=== PATIENT | male | born 1950 | race Caucasian/White ===

== ENCOUNTER → 2016-08-01 | Outpatient (CLI) | payer OTHER ==
[~2016-08-01] MED LIST: ATOR-24 PO; LISI20TA3 PO; MULT-506 PO
[2016-08-01 13:47] LABS: CREATININE 0.92 mg/dl (0.60-1.40)
== END | disposition home or self-care (01) ==
LOC: C.LABMFLN 11:22
PROVIDERS: ATTEND Physician Assistant
DX: Z01.812 Encounter for preprocedural laboratory examination (principal)

== ENCOUNTER → 2016-09-04 | Outpatient (CLI) | payer OTHER ==
[2016-09-04 14:11] LABS: ALT/SGPT 23 U/L (12-78); AST/SGOT 13 U/L (15-37); BLOOD UREA NITROGEN 19 mg/dl (7-18); BUN/CREATININE RATIO 17.5 (10-20); CARBON DIOXIDE 26 mmol/L (21-32); CHLORIDE 108 mmol/L (98-107); CHOLESTEROL 165 mg/dl (0-200); GLUCOSE 96 mg/dl (70-99); POTASSIUM 4.4 mmol/L (3.5-5.1); SODIUM 142 mmol/L (136-145); TRIGLYCERIDES 96 mg/dl (0-150); VERY LOW DENSITY LIPOPROT CALC 19 mg/dl
[2016-09-04 14:14] LABS: CHOLESTEROL/HDL RATIO 3.7; HDL CHOLESTEROL 45 mg/dl; LDL CHOLESTEROL CALCULATED 101 mg/dl
[2016-09-04 14:31] LABS: CALCIUM 8.5 mg/dl (8.5-10.1)
== END | disposition home or self-care (01) ==
LOC: C.LABMFLN 09:32
PROVIDERS: ATTEND Family Medicine
DX: E78.00 Pure hypercholesterolemia, unspecified (principal); I10 Essential (primary) hypertension

== ENCOUNTER → 2017-02-24 | Outpatient (CLI) | payer OTHER ==
[2017-02-24 13:33] LABS: ALT/SGPT 22 U/L (12-78); AST/SGOT 14 U/L (15-37); BLOOD UREA NITROGEN 16 mg/dl (7-18); BUN/CREATININE RATIO 17.1 (10-20); CALCIUM 8.6 mg/dl (8.5-10.1); CARBON DIOXIDE 27 mmol/L (21-32); CHLORIDE 108 mmol/L (98-107); CHOLESTEROL 160 mg/dl (0-200); CREATININE 0.92 mg/dl (0.60-1.40); GLUCOSE 94 mg/dl (70-99); POTASSIUM 4.3 mmol/L (3.5-5.1); SODIUM 142 mmol/L (136-145)
[2017-02-24 13:36] LABS: CHOLESTEROL/HDL RATIO 3.9; HDL CHOLESTEROL 41 mg/dl; LDL CHOLESTEROL CALCULATED 94 mg/dl; TRIGLYCERIDES 126 mg/dl (0-150); VERY LOW DENSITY LIPOPROT CALC 25 mg/dl
== END | disposition home or self-care (01) ==
LOC: C.LABMFLN 08:17
PROVIDERS: ATTEND Family Medicine
DX: E78.00 Pure hypercholesterolemia, unspecified (principal); I10 Essential (primary) hypertension

== ENCOUNTER → 2017-07-21 | Outpatient (CLI) | payer OTHER ==
[2017-07-21 13:54] LABS: BLOOD UREA NITROGEN 23 mg/dl (7-18); CREATININE 0.95 mg/dl (0.60-1.40)
== END | disposition home or self-care (01) ==
LOC: C.LABMFLN 08:25
PROVIDERS: ATTEND Orthopaedic Surgery Orthopaedic Surgery of the Spine
DX: Z01.812 Encounter for preprocedural laboratory examination (principal)

== ENCOUNTER 2019-04-20 12:19 | Inpatient (IN) ==
[2019-04-20] MEDS ORDERED: dilTIAZem HCl 5 MG/ML 5 ML VIAL IV STA (12:51)
[2019-04-20 13:11] LABS: Basophils # (auto) 0.02 K/uL (0-0.2); Basophils % (auto) 0.3 %; Eosinophils # (auto) 0.06 K/uL (0-0.5); Hematocrit (blood only) 38.2 % (42-52); Hemoglobin 12.4 g/dL (14.0-18.0); Immature Granulocytes # (auto) 0.01 K/uL (0.00-0.02); Immature Granulocytes % (auto) 0.2 %; Lymphocytes # (auto) 1.63 K/uL (1.2-3.4); Lymphocytes % (auto) 27.1 %; Mean Corpuscular Hemoglobin 32.4 pg (25-34); Mean Corpuscular Hgb Conc 32.5 g/dL (32-36); Mean Corpuscular Volume 99.7 fL (80-100); Mean Platelet Volume 9.3 fL (7.4-10.4); Monocytes # (auto) 0.56 K/uL (0.11-0.59); Monocytes % (auto) 9.3 %; Neutrophils # (auto) 3.74 K/uL (1.4-6.5); Neutrophils % (auto) 62.1 %; Platelet Count 268 K/uL (130-400); RDW Coefficient of Variation 14.2 % (11.5-14.5); RDW Standard Deviation 51.3 fL (36.4-46.3); Red Blood Count 3.83 M/uL (4.7-6.1); White Blood Count 6.02 K/uL (4.8-10.8)
--- NOTE | 2019-04-20 13:15 | XRay Report ---
XR chest 1V portable CLINICAL HISTORY: 68 years-old Male presenting with Chest Pain. TECHNIQUE: Portable upright AP view of the chest was obtained. COMPARISON: 01/17/2011. FINDINGS: Median sternotomy wires now in place. Prosthetic aortic valve may be present. Atherosclerosis of the aortic arch. Cardiac silhouette mildly enlarged. Minimal pulmonary vascular prominence. No focal opac ity. No large effusion or pneumothorax. Degenerative changes of the thoracic spine. Anterior cervical fusion hardware. Upper abdomen normal. IMPRESSION: 1. Mild cardiomegaly and mild if any volume overload. ACT 112: Negative or not required by law. Electronically signed by: Skyler Leigh M.D. 04/20/2019 1:14 PM
[2019-04-20 13:26] LABS: Alanine Aminotransferase 23 U/L (12-78); Albumin Level 3.5 gm/dl (3.4-5.0); Aspartate Aminotransferase 15 U/L (15-37); BUN Creatinine Ratio 15.8 (10-20); Blood Urea Nitrogen 15 mg/dl (7-18); Calcium 9.1 mg/dl (8.5-10.1); Carbon Dioxide 26 mmol/L (21-32); Chloride 109 mmol/L (98-107); Creatinine Clr Calc Pharmacy 95.1 ml/min; Est GFR (African American) 93.6; Est GFR (Non-African American) 80.8; Glucose 91 mg/dl (70-99); Lipase 144 U/L (73-393); Potassium 4.4 mmol/L (3.5-5.1); Sodium 140 mmol/L (136-145)
[2019-04-20 13:30] LABS: Albumin Globulin Ratio 0.8 (0.9-2); Alkaline Phosphatase 111 U/L (45-117); Bilirubin,Total 0.7 mg/dl (0.2-1); Globulin 4.4 gm/dl (2.5-4.0); Total Protein 7.9 gm/dl (6.4-8.2); Troponin I < 0.015 ng/ml (0-0.045)
[2019-04-20 13:34] LABS: INR 1.1 (0.9-1.1); Prothrombin Time 10.9 Seconds (9.0-12.0)
[2019-04-20] MEDS: dilTIAZem HCL 125 MG in DEXTROSE 5% 100 ML IV SCH ×2 (13:38→21:23)
--- NOTE | 2019-04-20 14:00 | Electrocardiogram Report ---
Test Reason : Blood Pressure : / mmHG Vent. Rate : 134 BPM Atrial Rate : 268 BPM P-R Int : 000 ms QRS Dur : 078 ms QT Int : 206 ms P-R-T Axes : 059 018 070 degrees QTc Int : 307 ms Atrial flutter with variable A-V block Nonspecific T wave abnormality Abnormal ECG When compared with ECG of 16-JAN-2011 22:33, Atrial flutter has replaced Sinus rhythm Nonspecific T wave abnormality now evident in Anterolateral leads Confirmed by Krish Raymundo ([id number]) on 04/20/2019 2:00:12 PM Referred By: Confirmed By:Krish Raymundo
--- NOTE | 2019-04-20 15:18 | Anesthesiology Consultation ---
Date of Service April 20, 2019 Assessment & Plan (1) Encounter for pre-operative examination: Chart Review Chart Review: Acceptable Risk for Surgery History Height/Weight Height: 5 ft 10 in Weight: 122.9 kg Allergies Allergy/AdvReac Type Severity Reaction Status Date / Time No Known Allergies Allergy Verified 04/20/19 13:49 Medications Home Medications Medication Instructions Recorded Confirmed Last Taken apixaban [Eliquis] 5 mg PO BID 04/20/19 04/20/19 04/20/19 diltiazem HCl 120 mg PO DAILY 04/20/19 04/20/19 04/20/19 Active Medications Generic Name Dose Route Start Last Admin Trade Name Freq PRN Reason Stop Dose Admin Diltiazem HCl 125 mg/ Dextrose 125 mls @ 0 mls/hr 04/20/19 13:00 04/20/19 13:38 IV 05/20/19 12:59 5 mg/hr .Q0M MEDARDO 5 mls/hr Administration Protocol Per Protocol Past Medical History Medical History Abdominal bloating (Acute) Aortic stenosis Atrial flutter Benign essential hypertension (Acute) CAD (coronary artery disease) Cervical radiculopathy (Acute) Cervicalgia (Acute) Erectile dysfunction (Acute) Hypercholesterolemia (Acute) Medicare annual wellness visit, initial (Acute) Multiple lung nodules on CT (Acute) Need for pneumococcal vaccination (Acute) Prostate cancer screening (Acute) Screen for colon cancer (Acute) Trigger finger, acquired (Acute) Tubular adenoma of colon (Acute) Ureteral calculus, left (Acute) Past Family History Family History Brother Coronary heart disease Colon cancer Past Surgical History Surgical History History of arthroscopy of shoulder History of spinal surgery Hx of carpal tunnel repair S/P aortic valve replacement with bioprosthetic valve Social History Smoking Status: Never smoker Hx Alcohol Use: No Hx Substance Use: No substance use type: does not use Physical Exam Vital Signs Last Vital Signs Temp 36.7 C 04/20/19 12:29 Pulse 94 H 04/20/19 15:04 Resp 18 04/20/19 15:04 BP 126/98 04/20/19 15:04 Pulse Ox 96 04/20/19 15:04 Testing Laboratory Results 04/20/19 13:01 04/20/19 13:01 PT 10.9 Seconds (9.0-12.0) 04/20/19 13:01 INR 1.1 (0.9-1.1) 04/20/19 13:01 Electrocardiogram Date: 04/20/19 Findings: + AFIB @ (A flutter 134)
--- NOTE | 2019-04-20 15:30 | History & Physical Report ---
Date of Service April 20, 2019 Assessment & Plan (1) Atrial flutter: Admit to PCU on telemetry Vital signs every 4 hours N.p.o. after midnight for the LIANG guided cardioversion TTE pending Cardiology consult placed Dr. Kong Continue diltiazem drip DVT prophylaxis with Eliquis Continue Eliquis Full code Present on Admission?: Yes (2) SOB (shortness of breath): Likely related to palpitations and fast heart rate. Improving with decreasing heart rate and diltiazem drip. Present on Admission?: Yes (3) CAD (coronary artery disease): Patient had lipid panel checked on October 2018 which was grossly normal. He is not on lipid lowering agents. Present on Admission?: Yes (4) S/P aortic valve replacement with bioprosthetic valve: TTE pending. No clinical symptoms of bioprosthetic valve issue. Continue Eliquis anticoagulation Present on Admission?: Yes (5) Hypercholesterolemia: Lipid panel was checked in October 2018. It was grossly normal. Repeat lipid panel in a.m. 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 fib's a flutter. He is patient of Dr. Kong. Patient was sitting comfortably in the bed. He says that he feels okay. He had some palpitations earlier today which are now resolving. He was started on diltiazem drip and his heart rate is slowing down from [address] Kong recommended to have TTE done before LIANG guided cardioversion which is planned for tomorrow. Patient denies fever, chills, chest pain, shortness of breath, abdominal pain, frequency, urgency. EKG shows atrial flutter with variable AV block. And nonspecific T wave abnormality with QT interval of 206 and ventricular rate of 130. Labs are reviewed: WBCs 6.02, hemoglobin 12.4, hematocrit 38.2, platelets 268, PT 10.9, INR 1.1, sodium 140, potassium 4.4, chloride 109, BUN 15, creatinine 0.95, GFR 80.8, troponin 0.015, Albumin 3.5, TSH pending, BNP pending. Decision was made to admit patient to PCU on telemetry for planned LIANG guided cardioversion tomorrow. Allergies Allergy/AdvReac Type Severity Reaction Status Date / Time No Known Allergies Allergy Verified 04/20/19 13:49 Home Medications Home Medications Medication Instructions Recorded Confirmed Type apixaban [Eliquis] 5 mg PO BID 04/20/19 04/20/19 History diltiazem HCl 120 mg PO DAILY 04/20/19 04/20/19 History Past Med/Surg History Medical History Abdominal bloating (Acute) Aortic stenosis Atrial flutter Benign essential hypertension (Acute) CAD (coronary artery disease) Cervical radiculopathy (Acute) Cervicalgia (Acute) Erectile dysfunction (Acute) Hypercholesterolemia (Acute) Medicare annual wellness visit, initial (Acute) Multiple lung nodules on CT (Acute) Need for pneumococcal vaccination (Acute) Prostate cancer screening (Acute) Screen for colon cancer (Acute) Trigger finger, acquired (Acute) Tubular adenoma of colon (Acute) Ureteral calculus, left (Acute) Surgical History History of arthroscopy of shoulder History of spinal surgery Hx of carpal tunnel repair S/P aortic valve replacement with bioprosthetic valve Family History Brother Coronary heart disease Colon cancer Social History Preferred Language: Telugu Communication Ability: Effective Beliefs That Will Affect Care: None marital status: Current Living Situation: Spouse Feels Safe at Home: Yes Smoking Status: Never smoker Hx Alcohol Use: No Hx Substance Use: No Review of Systems Review of Systems: All systems reviewed & are unremarkable except as noted in HPI & below Physical Exam Constitutional: WD/WN, vitals as above well developed and + morbidly obese Eyes: PERRL, conjunctivae normal, anicteric sclerae ENMT: external ear and nose normal, oropharynx normal Neck: trachea midline, no thyromegaly Respiratory: normal respiratory effort, lungs clear to auscultation Cardiovascular: Rate/Rhythm: + irregularly irregular Vessels: dorsalis pedis pulses present Gastrointestinal (Abdomen): normal bowel sounds, soft, nontender, no hepatosplenomegaly Musculoskeletal: no cyanosis or clubbing, extremities motor strength 5/5 Skin: no rashes, warm and dry Neurologic: patellar DTR's 2+ bilat, sensation intact Psychiatric: A+Ox3, euthymic affect Lymphatic: no cervical or axillary lymphadenopathy Results & Data Vital Signs (Past 12 Hours) Vital Signs Temp Pulse Pulse Resp BP BP Pulse Ox 04/20/19 15:04 94 H 18 126/98 96 04/20/19 14:10 96 H 20 126/98 94 04/20/19 13:30 91 H 18 160/70 H 96 04/20/19 12:47 136 H 93 04/20/19 12:45 137 H 22 134/102 H 93 04/20/19 12:29 36.7 C 140 H 20 139/93 97 Code Status & VTE Plan Code Status Full code VTE Prophylaxis Plan VTE Prophylaxis will be ordered: Yes PG Care Time/CCT Total # of Minutes Spent Total Time Spent with Patient: Total time spent is greater than 50% in coor dination of care (as documented) at patient's floor/unit and/or counseling patient: (1) Atrial flutter Atrial flutter type: unspecified Qualified Code(s): I48.92 - Unspecified atrial flutter
--- NOTE | 2019-04-20 19:17 | Emergency Department Note ---
Entered by Roxanne Vang acting as a scribe for History of Present Illness General Chief complaint: Referred by Doctor Stated complaint: HIGH BP DR REF Source: patient History of Present Illness Provider complaint: referred by doctor Onset (ago): minute(s) (prior to arrival ) Location: chest Maximum Pain Intensity: 0 Quality: + other (referred by doctor) Associated symptoms: + shortness of breath and + other (Positive fatigue;); no chest pain Treatments prior to arrival: none The patient, who is a 68 year old male with a medical history of CAD, aortic stenosis, and hypercholesterolemia, presents to the Emergency Room with a reference from his manager club for evaluation. The patient explains that he had open heart surgery for an aortic valve replacement on March 31. The patient states that today during cardiac rehab they observed that his heart rate was over 140. The patient explains that he had an appointment with his manager club earlier today and informs that he was sent here to have his heart slowed down. The patient denies chest pain or any chest symptoms. The patient expresses that he has had worsening shortness of breath and fatigue after completing his medication on April 02. The patient informs that he was taking potassium pills, vitamins, Aspirin and a heart medications that he does not recall. The patient confirms that he is on Eliquis. The patient denies a history of atrial fibrillation and atrial flutter. Home Medications Home Medications Medication Instructions Recorded Confirmed Type apixaban [Eliquis] 5 mg PO BID 04/20/19 04/20/19 History diltiazem HCl 120 mg PO DAILY 04/20/19 04/20/19 History Allergies Allergy/AdvReac Type Severity Reaction Status Date / Time No Known Allergies Allergy Verified 04/20/19 13:49 Past Med/Surg History Medical History Abdominal bloating (Acute) Aortic stenosis Atrial flutter Benign essential hypertension (Acute) CAD (coronary artery disease) Cervical radiculopathy (Acute) Cervicalgia (Acute) Erectile dysfunction (Acute) Hypercholesterolemia (Acute) Medicare annual wellness visit, initial (Acute) Multiple lung nodules on CT (Acute) Need for pneumococcal vaccination (Acute) Prostate cancer screening (Acute) Screen for colon cancer (Acute) Trigger finger, acquired (Acute) Tubular adenoma of colon (Acute) Ureteral calculus, left (Acute) Surgical History History of arthroscopy of shoulder History of spinal surgery Hx of carpal tunnel repair S/P aortic valve replacement with bioprosthetic valve Family History Brother Coronary heart disease Colon cancer Social History Preferred Language: Montenegrin Communication Ability: Effective Beliefs That Will Affect Care: None marital status: Current Living Situation: Spouse Feels Safe at Home: Yes Smoking Status: Never smoker Hx Alcohol Use: No Hx Substance Use: No Review of Systems See HPI for pertinent positives & negatives. and A total of 10 systems reviewed and were otherwise negative Physical Exam Vital Signs Vital Signs - 24 hr 04/20/19 12:29 04/20/19 12:41 04/20/19 12:42 Temperature 36.7 C Temperature Source Oral Pulse Rate 140 H 139 H Pulse Rate [Finger] Pulse Rate from SpO2 Sensor Pulse Rhythm [Finger] Pulse Strength [Finger] Respiratory Rate 20 19 Respiratory Effort / Characteristics Non-Labored Respiratory Depth Normal Blood Pressure 139/93 134/102 H Blood Pressure [Right Arm] Blood Pressure Mean 108 107 Blood Pressure Mean [Right Arm] Pulse Oximetry 97 Oxygen Delivery Method Room Air Room Air Sepsis Recent Fever Within 48 Hours No Sepsis Action Taken by Nursing No Action Required 04/20/19 12:45 04/20/19 12:47 04/20/19 13:00 Temperature Temperature Source Pulse Rate 136 H 137 H Pulse Rate [Finger] 137 H Pulse Rate from SpO2 Sensor 136 H Pulse Rhythm [Finger] Pulse Strength [Finger] Respiratory Rate 22 34 H Respiratory Effort / Characteristics Respiratory Depth Blood Pressure Blood Pressure [Right Arm] 134/102 H Blood Pressure Mean Blood Pressure Mean [Right Arm] 112 Pulse Oximetry 93 93 96 Oxygen Delivery Method Room Air Sepsis Recent Fever Within 48 Hours Sepsis Action Taken by Nursing 04/20/19 13:10 04/20/19 13:20 04/20/19 13:30 Temperature Temperature Source Pulse Rate 132 H 136 H 117 H Pulse Rate [Finger] 91 H Pulse Rate from SpO2 Sensor 131 H 137 H 197 H Pulse Rhythm [Finger] Irregular Pulse Strength [Finger] Normal Respiratory Rate 18 26 H 19 Respiratory Effort / Characteristics Non-Labored Respiratory Depth Normal Blood Pressure Blood Pressure [Right Arm] 160/70 H Blood Pressure Mean Blood Pressure Mean [Right Arm] 100 Pulse Oximetry 96 96 87 L Oxygen Delivery Method Room Air Sepsis Recent Fever Within 48 Hours Sepsis Action Taken by Nursing 04/20/19 13:40 04/20/19 13:41 04/20/19 13:45 Temperature Temperature Source Pulse Rate 112 H 113 H 102 H Pulse Rate [Finger] Pulse Rate from SpO2 Sensor 114 H 103 H 90 Pulse Rhythm [Finger] Pulse Strength [Finger] Respiratory Rate 24 22 22 Respiratory Effort / Characteristics Respiratory Depth Blood Pressure 115/81 127/99 Blood Pressure [Right Arm] Blood Pressure Mean 92 108 Blood Pressure Mean [Right Arm] Pulse Oximetry 96 95 95 Oxygen Delivery Method Sepsis Recent Fever Within 48 Hours Sepsis Action Taken by Nursing 04/20/19 13:50 04/20/19 13:51 04/20/19 13:55 Temperature Temperature Source Pulse Rate 102 H 102 H 102 H Pulse Rate [Finger] Pulse Rate from SpO2 Sensor 104 H 102 H 91 H Pulse Rhythm [Finger] Pulse Strength [Finger] Respiratory Rate 18 18 17 Respiratory Effort / Characteristics Respiratory Depth Blood Pressure 118/96 115/92 Blood Pressure [Right Arm] Blood Pressure Mean 109 96 Blood Pressure Mean [Right Arm] Pulse Oximetry 94 95 95 Oxygen Delivery Method Sepsis Recent Fever Within 48 Hours Sepsis Action Taken by Nursing 04/20/19 14:00 04/20/19 14:01 04/20/19 14:05 Temperature Temperature Source Pulse Rate 96 H 102 H 102 H Pulse Rate [Finger] Pulse Rate from SpO2 Sensor 99 H 103 H 102 H Pulse Rhythm [Finger] Pulse Strength [Finger] Respiratory Rate 18 17 17 Respiratory Effort / Characteristics Respiratory Depth Blood Pressure 130/87 126/98 Blood Pressure [Right Arm] Blood Pressure Mean 105 115 Blood Pressure Mean [Right Arm] Pulse Oximetry 95 95 95 Oxygen Delivery Method Sepsis Recent Fever Within 48 Hours Sepsis Action Taken by Nursing 04/20/19 14:10 04/20/19 14:11 04/20/19 14:15 Temperature Temperature Source Pulse Rate 102 H 86 102 H Pulse Rate [Finger] 96 H Pulse Rate from SpO2 Sensor 101 H 95 H 103 H Pulse Rhythm [Finger] Regular Pulse Strength [Finger] Respiratory Rate 27 H 18 20 Respiratory Effort / Characteristics Non-Labored Respiratory Depth Normal Blood Pressure 124/82 128/96 Blood Pressure [Right Arm] 126/98 Blood Pressure Mean 102 101 Blood Pressure Mean [Right Arm] 107 Pulse Oximetry 96 95 95 Oxygen Delivery Method Room Air Sepsis Recent Fever Within 48 Hours Sepsis Action Taken by Nursing 04/20/19 14:20 04/20/19 14:21 04/20/19 14:25 Temperature Temperature Source Pulse Rate 120 H 102 H 109 H Pulse Rate [Finger] Pulse Rate from SpO2 Sensor 96 H 105 H Pulse Rhythm [Finger] Pulse Strength [Finger] Respiratory Rate 20 28 H 30 H Respiratory Effort / Characteristics Respiratory Depth Blood Pressure 153/96 H 121/86 Blood Pressure [Right Arm] Blood Pressure Mean 107 100 Blood Pressure Mean [Right Arm] Pulse Oximetry 91 94 Oxygen Delivery Method Sepsis Recent Fever Within 48 Hours Sepsis Action Taken by Nursing 04/20/19 14:30 04/20/19 14:31 04/20/19 14:35 Temperature Temperature Source Pulse Rate 102 H 102 H 91 H Pulse Rate [Finger] Pulse Rate from SpO2 Sensor 101 H 103 H 96 H Pulse Rhythm [Finger] Pulse Strength [Finger] Respiratory Rate 23 19 17 Respiratory Effort / Characteristics Respiratory Depth Blood Pressure 124/94 132/98 Blood Pressure [Right Arm] Blood Pressure Mean 109 103 Blood Pressure Mean [Right Arm] Pulse Oximetry 95 96 96 Oxygen Delivery Method Sepsis Recent Fever Within 48 Hours Sepsis Action Taken by Nursing 04/20/19 14:40 04/20/19 14:41 04/20/19 14:45 Temperature Temperature Source Pulse Rate 90 99 H 100 H Pulse Rate [Finger] Pulse Rate from SpO2 Sensor 90 101 H 99 H Pulse Rhythm [Finger] Pulse Strength [Finger] Respiratory Rate 19 18 19 Respiratory Effort / Characteristics Respiratory Depth Blood Pressure 137/87 141/87 H Blood Pressure [Right Arm] Blood Pressure Mean 107 95 Blood Pressure Mean [Right Arm] Pulse Oximetry 94 96 96 Oxygen Delivery Method Sepsis Recent Fever Within 48 Hours Sepsis Action Taken by Nursing 04/20/19 14:50 04/20/19 14:51 04/20/19 14:55 Temperature Temperature Source Pulse Rate 101 H 102 H 102 H Pulse Rate [Finger] Pulse Rate from SpO2 Sensor 102 H 101 H 102 H Pulse Rhythm [Finger] Pulse Strength [Finger] Respiratory Rate 17 17 17 Respiratory Effort / Characteristics Respiratory Depth Blood Pressure 134/96 137/88 Blood Pressure [Right Arm] Blood Pressure Mean 103 104 Blood Pressure Mean [Right Arm] Pulse Oximetry 95 96 96 Oxygen Delivery Method Sepsis Recent Fever Within 48 Hours Sepsis Action Taken by Nursing 04/20/19 15:00 04/20/19 15:01 04/20/19 15:04 Temperature Temperature Source Pulse Rate 92 H 102 H Pulse Rate [Finger] 94 H Pulse Rate from SpO2 Sensor 98 H 102 H Pulse Rhythm [Finger] Irregular Pulse Strength [Finger] Respiratory Rate 17 18 18 Respiratory Effort / Characteristics Non-Labored Respiratory Depth Normal Blood Pressure 126/98 Blood Pressure [Right Arm] 126/98 Blood Pressure Mean 109 Blood Pressure Mean [Right Arm] 107 Pulse Oximetry 96 96 96 Oxygen Delivery Method Room Air Sepsis Recent Fever Within 48 Hours Sepsis Action Taken by Nursing 04/20/19 15:10 04/20/19 15:15 04/20/19 15:20 Temperature Temperature Source Pulse Rate 96 H 97 H 102 H Pulse Rate [Finger] Pulse Rate from SpO2 Sensor 96 H 92 H 100 H Pulse Rhythm [Finger] Pulse Strength [Finger] Respiratory Rate 19 20 19 Respiratory Effort / Characteristics Respiratory Depth Blood Pressure 138/116 H 157/122 H 159/108 H Blood Pressure [Right Arm] Blood Pressure Mean 128 134 121 Blood Pressure Mean [Right Arm] Pulse Oximetry 96 96 96 Oxygen Delivery Method Sepsis Recent Fever Within 48 Hours Sepsis Action Taken by Nursing 04/20/19 15:26 04/20/19 15:30 04/20/19 15:31 Temperature Temperature Source Pulse Rate 101 H 102 H 91 H Pulse Rate [Finger] Pulse Rate from SpO2 Sensor 81 54 L 96 H Pulse Rhythm [Finger] Pulse Strength [Finger] Respiratory Rate 19 19 23 Respiratory Effort / Characteristics Respiratory Depth Blood Pressure 156/119 H 158/103 H Blood Pressure [Right Arm] Blood Pressure Mean 131 131 Blood Pressure Mean [Right Arm] Pulse Oximetry 96 96 96 Oxygen Delivery Method Sepsis Recent Fever Within 48 Hours Sepsis Action Taken by Nursing 04/20/19 15:35 04/20/19 15:40 04/20/19 15:45 Temperature Temperature Source Pulse Rate 102 H 96 H 101 H Pulse Rate [Finger] Pulse Rate from SpO2 Sensor 89 102 H 101 H Pulse Rhythm [Finger] Pulse Strength [Finger] Respiratory Rate 21 18 21 Respiratory Effort / Characteristics Respiratory Depth Blood Pressure 130/94 141/92 H Blood Pressure [Right Arm] Blood Pressure Mean 106 105 Blood Pressure Mean [Right Arm] Pulse Oximetry 96 96 96 Oxygen Delivery Method Sepsis Recent Fever Within 48 Hours Sepsis Action Taken by Nursing 04/20/19 15:50 04/20/19 16:00 04/20/19 16:01 Temperature Temperature Source Pulse Rate 102 H 91 H 96 H Pulse Rate [Finger] Pulse Rate from SpO2 Sensor 103 H 88 90 Pulse Rhythm [Finger] Pulse Strength [Finger] Respiratory Rate 22 19 20 Respiratory Effort / Characteristics Respiratory Depth Blood Pressure 137/82 Blood Pressure [Right Arm] Blood Pressure Mean 94 Blood Pressure Mean [Right Arm] Pulse Oximetry 97 96 96 Oxygen Delivery Method Sepsis Recent Fever Within 48 Hours Sepsis Action Taken by Nursing 04/20/19 16:10 04/20/19 16:15 04/20/19 16:20 Temperature Temperature Source Pulse Rate 99 H 103 H 103 H Pulse Rate [Finger] Pulse Rate from SpO2 Sensor 86 99 H 103 H Pulse Rhythm [Finger] Pulse Strength [Finger] Respiratory Rate 19 21 18 Respiratory Effort / Characteristics Respiratory Depth Blood Pressure 129/95 Blood Pressure [Right Arm] Blood Pressure Mean 103 Blood Pressure Mean [Right Arm] Pulse Oximetry 96 96 96 Oxygen Delivery Method Sepsis Recent Fever Within 48 Hours Sepsis Action Taken by Nursing 04/20/19 16:30 04/20/19 16:31 04/20/19 16:40 Temperature Temperature Source Pulse Rate 103 H 96 H 84 Pulse Rate [Finger] Pulse Rate from SpO2 Sensor 101 H 98 H 84 Pulse Rhythm [Finger] Pulse Strength [Finger] Respiratory Rate 19 17 16 Respiratory Effort / Characteristics Respiratory Depth Blood Pressure 140/112 H Blood Pressure [Right Arm] Blood Pressure Mean 128 Blood Pressure Mean [Right Arm] Pulse Oximetry 94 96 94 Oxygen Delivery Method Sepsis Recent Fever Within 48 Hours Sepsis Action Taken by Nursing 04/20/19 16:45 04/20/19 16:50 04/20/19 17:00 Temperature Temperature Source Pulse Rate 86 109 H 90 Pulse Rate [Finger] Pulse Rate from SpO2 Sensor 92 H 101 H 89 Pulse Rhythm [Finger] Pulse Strength [Finger] Respiratory Rate 18 17 18 Respiratory Effort / Characteristics Respiratory Depth Blood Pressure 155/108 H 133/97 Blood Pressure [Right Arm] Blood Pressure Mean 120 112 Blood Pressure Mean [Right Arm] Pulse Oximetry 96 95 95 Oxygen Delivery Method Sepsis Recent Fever Within 48 Hours Sepsis Action Taken by Nursing 04/20/19 17:01 04/20/19 17:10 04/20/19 17:15 Temperature Temperature Source Pulse Rate 90 101 H 90 Pulse Rate [Finger] Pulse Rate from SpO2 Sensor 91 H 101 H 83 Pulse Rhythm [Finger] Pulse Strength [Finger] Respiratory Rate 18 20 18 Respiratory Effort / Characteristics Respiratory Depth Blood Pressure 139/98 Blood Pressure [Right Arm] Blood Pressure Mean 111 Blood Pressure Mean [Right Arm] Pulse Oximetry 94 95 95 Oxygen Delivery Method Sepsis Recent Fever Within 48 Hours Sepsis Action Taken by Nursing 04/20/19 17:20 04/20/19 17:30 04/20/19 17:31 Temperature Temperature Source Pulse Rate 90 90 86 Pulse Rate [Finger] Pulse Rate from SpO2 Sensor 96 H 80 87 Pulse Rhythm [Finger] Pulse Strength [Finger] Respiratory Rate 16 17 18 Respiratory Effort / Characteristics Respiratory Depth Blood Pressure 138/101 H Blood Pressure [Right Arm] Blood Pressure Mean 114 Blood Pressure Mean [Right Arm] Pulse Oximetry 94 95 94 Oxygen Delivery Method Sepsis Recent Fever Within 48 Hours Sepsis Action Taken by Nursing 04/20/19 17:40 04/20/19 17:46 04/20/19 17:50 Temperature Temperature Source Pulse Rate 90 91 H 90 Pulse Rate [Finger] Pulse Rate from SpO2 Sensor 94 H 82 100 H Pulse Rhythm [Finger] Pulse Strength [Finger] Respiratory Rate 22 22 20 Respiratory Effort / Characteristics Respiratory Depth Blood Pressure 131/83 Blood Pressure [Right Arm] Blood Pressure Mean 91 Blood Pressure Mean [Right Arm] Pulse Oximetry 94 95 95 Oxygen Delivery Method Sepsis Recent Fever Within 48 Hours Sepsis Action Taken by Nursing 04/20/19 18:00 04/20/19 18:01 04/20/19 18:10 Temperature Temperature Source Pulse Rate 90 90 115 H Pulse Rate [Finger] Pulse Rate from SpO2 Sensor 92 H 86 Pulse Rhythm [Finger] Pulse Strength [Finger] Respiratory Rate 22 20 23 Respiratory Effort / Characteristics Respiratory Depth Blood Pressure 131/92 Blood Pressure [Right Arm] Blood Pressure Mean 112 Blood Pressure Mean [Right Arm] Pulse Oximetry 95 95 Oxygen Delivery Method Sepsis Recent Fever Within 48 Hours Sepsis Action Taken by Nursing 04/20/19 18:16 04/20/19 18:28 04/20/19 18:30 Temperature Temperature Source Pulse Rate 103 H 128 H 102 H Pulse Rate [Finger] Pulse Rate from SpO2 Sensor 101 H Pulse Rhythm [Finger] Pulse Strength [Finger] Respiratory Rate 21 28 H 23 Respiratory Effort / Characteristics Respiratory Depth Blood Pressure 155/100 H Blood Pressure [Right Arm] Blood Pressure Mean 116 Blood Pressure Mean [Right Arm] Pulse Oximetry 95 Oxygen Delivery Method Sepsis Recent Fever Within 48 Hours Sepsis Action Taken by Nursing 04/20/19 18:31 04/20/19 18:32 04/20/19 18:40 Temperature Temperature Source Pulse Rate 92 H 91 H 91 H Pulse Rate [Finger] Pulse Rate from SpO2 Sensor 93 H 90 91 H Pulse Rhythm [Finger] Pulse Strength [Finger] Respiratory Rate 20 19 18 Respiratory Effort / Characteristics Respiratory Depth Blood Pressure 139/83 Blood Pressure [Right Arm] Blood Pressure Mean 86 Blood Pressure Mean [Right Arm] Pulse Oximetry 95 95 94 Oxygen Delivery Method Sepsis Recent Fever Within 48 Hours Sepsis Action Taken by Nursing 04/20/19 18:45 04/20/19 18:50 04/20/19 19:00 Temperature Temperature Source Pulse Rate 90 90 90 Pulse Rate [Finger] Pulse Rate from SpO2 Sensor 94 H 94 H 91 H Pulse Rhythm [Finger] Pulse Strength [Finger] Respiratory Rate 19 21 17 Respiratory Effort / Characteristics Respiratory Depth Blood Pressure 122/91 123/92 Blood Pressure [Right Arm] Blood Pressure Mean 97 101 Blood Pressure Mean [Right Arm] Pulse Oximetry 95 95 95 Oxygen Delivery Method Sepsis Recent Fever Within 48 Hours Sepsis Action Taken by Nursing GENERAL: sitting up in bed, disheveled, wearing hospital gown, non-toxic EYE EXAM: normal conjunctiva, OROPHARYNX: no exudate, no erythema, lips, buccal mucosa, and tongue normal and mucous membranes are moist NECK: supple, no nuchal rigidity, no adenopathy, non-tender LUNGS: Clear to auscultation. Normal chest wall mechanics HEART: no murmurs, tachycardic with audible click ABDOMEN: abdomen soft, non-tender, normo-active bowel sounds, no masses, no rebound or guarding. BACK: Back is symmetrical on inspection and there is no deformity, no midline tenderness, no CVA tenderness. SKIN: no rashes and no bruising UPPER EXTREMITIES: upper extremities are grossly normal. LOWER EXTREMITIES: No pitting edema, calves are equal bilaterally NEURO EXAM: Normal sensorium, cranial nerves II-XII grossly intact, normal speech, no gross weakness of arms, no gross weakness of legs. Course Course ED COURSE: Vital signs were reviewed and showed hypertensive The patients medical record was reviewed The above diagnostic studies were performed and reviewed. ED treatments and interventions as stated above. 18894: The patient was evaluated in room A10. A complete history and physical examination was performed. 1333: I reviewed the patient's case with Dr. López, [facility] Hospitalist. She will evaluate the patient for further management. 1340: Upon reevaluation, the patient is resting.I discussed my findings with the patient and he understands and agrees with the treatment plan. Based on the patients age, coexisting illnesses, exam and lab findings the decision to treat as an inpatient was made. The patient remained stable while under my care. The patient will be evaluated for further management. Consultations Consultation #1: I reviewed the patient's case with Dr. López, [facility] Hospitalist. She will evaluate the patient for further management. Time: 13:33 Administered Medications Diltiazem HCl 125 mg/ Dextrose 125 mls @ 0 mls/hr IV .Q0M MEDARDO; Protocol Stop: 05/20/19 12:59 Last Titration: 04/20/19 17:24 Dose: 15 mg/hr, 15 mls/hr Documented by: [id number] Cosigned by: [id number] Titration: 04/20/19 15:35 Dose: 10 mg/hr, 10 mls/hr Documented by: [id number] Cosigned by: [id number] Admin: 04/20/19 13:38 Dose: 5 mg/hr, 5 mls/hr Documented by: [id number] Cosigned by: [id number] Discontinued Medications Diltiazem HCl (Cardizem) 10 mg IV NOW STA Stop: 04/20/19 12:52 Last Admin: 04/20/19 13:39 Dose: 10 mg Documented by: [id number] Cosigned by: [id number] Critical Care Time Critical Care Time: Yes Total Critical Care Time: 35 I have personally spent 35 minutes of critical care time in the direct management of this patient. This includes bedside care, interpretation of diagnostic studies, and testing, discussion with consultants, patient, and family members, and other required patient management activities. This 35 minutes is in excess of all separately billable procedures. Medical Decision Making Differential Diagnosis Differential diagnoses includes but is not limited to acute coronary syndrome, myocardial infarction, pericarditis, pulmonary embolus, aortic dissection, pneumonia, pneumothorax, musculoskeletal, shingles, esophageal. Medical Records Attestation: I reviewed the patient's medical records. Home Medications Current Medication List: was personally reviewed by me Laboratory Data Attestation: I reviewed the patient's lab results. Result diagrams: 04/20/19 13:01 04/20/19 13:01 Lab Results 04/20/19 04/20/19 04/20/19 Range/Units 13:01 13:01 13:01 WBC 6.02 (4.8-10.8) K/uL RBC 3.83 L (4.7-6.1) M/uL Hgb 12.4 L (14.0-18.0) g/dL Hct 38.2 L (42-52) % MCV 99.7 (80-100) fL MCH 32.4 (25-34) pg MCHC 32.5 (32-36) g/dL RDW Std Deviation 51.3 H (36.4-46.3) fL RDW Coeff of Lorenzo 14.2 (11.5-14.5) % Plt Count 268 (130-400) K/uL MPV 9.3 (7.4-10.4) fL Immature Gran % (Auto) 0.2 % Neut % (Auto) 62.1 % Lymph % (Auto) 27.1 % [place] % (Auto) 9.3 % Eos % (Auto) 1.0 % Baso % (Auto) 0.3 % Immature Gran # (Auto) 0.01 (0.00-0.02) K/uL Neut # (Auto) 3.74 (1.4-6.5) K/uL Lymph # (Auto) 1.63 (1.2-3.4) K/uL [place] # (Auto) 0.56 (0.11-0.59) K/uL Eos # (Auto) 0.06 (0-0.5) K/uL Baso # (Auto) 0.02 (0-0.2) K/uL PT 10.9 (9.0-12.0) Seconds INR 1.1 (0.9-1.1) Sodium 140 (136-145) mmol/L Potassium 4.4 (3.5-5.1) mmol/L Chloride 109 H (98-107) mmol/L Carbon Dioxide 26 (21-32) mmol/L Anion Gap 5.0 (3-11) BUN 15 (7-18) mg/dl Creatinine 0.95 (0.6-1.4) mg/dl Est Cr Clr Drug Dosing 95.1 ml/min Est GFR ( Amer) 93.6 Est GFR (Non-Af Amer) 80.8 BUN/Creatinine Ratio 15.8 (10-20) Glucose 91 (70-99) mg/dl Calcium 9.1 (8.5-10.1) mg/dl Total Bilirubin 0.7 (0.2-1) mg/dl AST 15 (15-37) U/L ALT 23 (12-78) U/L Alkaline Phosphatase 111 (45-117) U/L Troponin I < 0.015 (0-0.045) ng/ml Total Protein 7.9 (6.4-8.2) gm/dl Albumin 3.5 (3.4-5.0) gm/dl Globulin 4.4 H (2.5-4.0) gm/dl Albumin/Globulin Ratio 0.8 L (0.9-2) Lipase 144 (73-393) U/L Imaging Data Radiologist's Impression: Radiology results as stated below per my review and the radiologist's interpretation: XR chest 1V portable CLINICAL HISTORY: 68 years-old Male presenting with Chest Pain. TECHNIQUE: Portable upright AP view of the chest was obtained. COMPARISON: 01/17/2011. FINDINGS: Median sternotomy wires now in place. Prosthetic aortic valve may be present. Atherosclerosis of the aortic arch. Cardiac silhouette mildly enlarged. Minimal pulmonary vascular prominence. No focal opacity. No large effusion or pneumothorax. Degenerative changes of the thoracic spine. Anterior cervical fusion hardware. Upper abdomen normal. IMPRESSION: 1. Mild cardiomegaly and mild if any volume overload. ACT 112: Negative or not required by law. Electronically signed by: Skyler Leigh M.D. 04/20/2019 1:14 PM ECG Data Attestation: I personally reviewed and interpreted this ECG as follows: Indication: + chest pain Rate (beats per minute): 34 Rhythm: + atrial fibrillation ECG [place]: + Left axis deviation ECG ST segments: + ST depression (Lateral leads) and + ST elevation (Mild elevation inferiorly) ECG Findings: + Q waves (Inferior) Blood Pressure Blood Pressure Findings: Normal blood pressure MDM Narrative The patient, who is a 68 year old male with a medical history of CAD, aortic stenosis, and hypercholesterolemia, presents to the Emergency Room with a reference from his manager club for evaluation. Patient was evaluated by cardiology in the office and sent over for atrial flutter with RVR. Patient recently had aortic valve replacement this past February. He has been on NOAC for less than 4 weeks consequently he was sent over for rate control and likely cardioversion. IV was established blood work was obtained and showed no signi ficant leukocytosis or anemia. INR was unremarkable. BMP with a slightly elevated chloride. LFTs bilirubin and troponin and lipase was unremarkable. Patient was given a bolus of Cardizem and placed on a Cardizem drip. Heart rate trended down to the 90s on the Cardizem drip and patient felt significantly better. His EKG confirmed atrial flutter with RVR and slight elevation in the inferior leads which I believe to be consistent and secondary to his rate as he felt significantly better following rate control. Did not placed on heparin as patient was taking his NOAC. Discussed with the hospitalist patient was admitted with now rate controlled atrial flutter Impression & Plan Atrial fibrillation with RVR, SOB (shortness of breath), Weakness Discharge Plan Visit Data Chief Complaint: Referred by Doctor Stated Complaint: HIGH BP DR REF ED Provider: John Tate Discharge Problem: Atrial fibrillation with RVR, SOB (shortness of breath), Weakness Patient Disposition: Being Evaluated by Hospitalist Discharge Instructions Interventions: ED Discharge Assessment Last Done: 04/20/19 19:05 Forms Stand Alone Forms: My [facility] [place] [employer] Prescriptions Prescriptions: No Action diltiazem HCl 120 mg capsule,extended release 24hr 120 mg PO DAILY RF: 0 Eliquis 5 mg tablet 5 mg PO BID RF: 0 Referrals Referrals: Emil Jo MD [Primary Care Provider] - The scribe's documentation has been prepared under my direction and personally reviewed by me in its entirety. I confirm that the note above accurately reflects all work, treatment, procedures, and medical decision making performed by me.
[2019-04-20] MEDS ORDERED: MAGNESIUM HYDROXIDE SUSP 30 ML UDC PO PRN (19:36)
[2019-04-20] MEDS ORDERED: ACETAMINOPHEN 325 MG TAB PO PRN (19:36)
[2019-04-20] MEDS ORDERED: ALUMINUM/MAGNESIUM SUSP 30 ML UDC PO PRN (19:36)
[2019-04-20] MEDS ORDERED: POLYETHYLENE (MIRALAX) 17 GM PACK PO PRN (19:36)
[2019-04-20] MEDS: APIXABAN 5 MG TABLET PO SCH (21:23)
[2019-04-21 07:17] LABS: Chol HDL Ratio 5; Cholesterol 195 mg/dl (0-200); HDL Cholesterol 40 mg/dl; LDL Cholesterol Calculated 132 mg/dl; Triglycerides 113 mg/dl (0-150); VLDL Cholesterol 23 mg/dl
[2019-04-21 08:23] LABS: Estimated Average Glucose 117 mg/dl; Hemoglobin A1C 5.7 % (4.5-5.6)
[2019-04-21] MEDS: dilTIAZem HCL 125 MG in DEXTROSE 5% 100 ML IV SCH (08:24)
[2019-04-21] MEDS: APIXABAN 5 MG TABLET PO SCH (08:25)
--- NOTE | 2019-04-21 08:50 | Cardiology Progress Note ---
Date of Service April 21, 2019 Assessment & Plan (1) Atrial flutter: (2) SOB (shortness of breath): (3) Aortic stenosis: (4) S/P aortic valve replacement with bioprosthetic valve: (5) CAD (coronary artery disease): ASSESSMENT/PLAN: 1. Atrial flutter with rapid ventricular response: We discussed the diagnosis in great detail. Recommend electrical cardioversion to try to obtain sinus rhythm. Because onset is likely greater than 48 hours before his anticoagulation was initiated, recommend transesophageal echo first. Risk and benefits of transesophageal ECHO cardioversion were discussed with him and his in great detail. He was agreeable to undergo the procedure. For now, continue diltiazem drip for rate control which is adequately controlling his heart rate. Would consider amiodarone 200 mg p.o. twice daily following cardioversion which will likely be for a short term treatment of 1-3 months. Also recommend beta- marcello, if heart rate allows, and discontinuation of diltiazem on discharge. Continue anticoagulation for stroke risk reduction. If he has recurrent atrial flutter, would consider ablation. We discussed the fact that LV systolic function may be depressed due to the fact that he has been tachycardic for many days. 2. Aortic stenosis status post bioprosthetic aortic valve: This will be re- evaluated in the future with echocardiogram and possibly today with transesophageal echo. SBE prophylaxis. He is enrolled in cardiac rehab. 3. CAD: Nonobstructive. High-intensity statin therapy recommended. Beta- marcello on discharge as above. No angina, despite rapid heart rates. 4. Shortness of breath: He appears euvolemic. His dyspnea with exertion was likely secondary to atrial flutter with rapid ventricular response as his symptoms have resolved with improved heart rate control while on a diltiazem drip. 5. Disposition: If he is able to undergo cardioversion today and maintain sinus rhythm, can be discharged later today from a cardiology perspective, if no other issues arise. We will arrange cardiology follow-up in the next 1-2 weeks. Thank you for allowing me to participate in the care of your patient. Please call for any other questions or concerns. Sincerely, Sunny Kong M.D. Subjective Patient was seen in the cardiology office yesterday by Charlene Mitchell PA-C. He was noted to be in atrial flutter with rapid ventricular response which was diagnosed on 04/15/2019 while at cardiac rehab. [facility] contacted my office at that time an ECG was reviewed. It was recommended to go to the emergency department. While there, he had intravenous beta-marcello and diltiazem, as well as oral diltiazem. There was some improvement in his heart rate and he was discharged home. Unfortunately, he does not feel any better. He has significant dyspnea with exertion, even with limited exertion. He was referred to the emergency department yesterday as outpatient cardioversion was not a good option due to the fact that he had a large breakfast. While here, he has been on a diltiazem drip with improvement of his heart rate. He remains in atrial flutter but feels much better overall. He denies any shortness of breath, chest pain, palpitations, syncope, near-syncope, edema, or bleeding such as melena, hematochezia, hematuria. His heart rate is reasonably controlled at rest but becomes tachycardic with minimal exertion. He admits that he was discharged on medications from [facility] but when the prescription ran out, he did not have been refilled and did not take the medications. One of these medications was a beta-marcello according to the d ischarge summary. His progressively worsening dyspnea with exertion has been occurring over the past several weeks. His is present at the bedside. He has had the following studies/procedures: 1. Echo 12/29/2018: Normal LV size, wall motion, systolic function. EF 55-60%. Mild LVH. Mildly dilated RV with normal systolic function severe aortic stenosis with trace regurgitation (peak velocity 4 m/s; mean gradient 40; PATRICIA 0.8 cm2). RVSP 30. 2. Cardiac catheterization 02/04/2019: Ostial LAD 50%. Proximal RCA 20%. Mid RCA 30%. 3. AVR with 27 mm Figueroa magna ease 03/01/[address] Hearn at [facility] [place] Review of systems: As above. Physical Exam Physical Exam: Gen.: No acute distress. Alert and oriented. HEENT: Anicteric sclera. Neck: No JVD. No bruits. Normal carotid upstrokes bilaterally. Cardiac: PMI was nondisplaced. No ventricular heave. Irregular . Normal S1-S2. 1/6 systolic murmur. No rubs, or gallops. Pulmonary: Clear to auscultation bilaterally without wheezes, rales, or rhonchi. Abdomen: Soft, nontender, nondistended, with normoactive bowel sounds. No bruits noted. Extremities: 2+ radial pulses bilaterally. 2+ posterior tibialis pulses bilaterally. No edema or cyanosis. No palpable cords. Psychiatric: Affect appears appropriate. Chest: Sternotomy site is clean, dry, and intact without erythema or discharge. Results & Data Vital Signs (Past 12 Hours) Vital Signs Temp Pulse Pulse Resp BP Pulse Ox 04/21/19 07:39 36.7 C 86 20 122/72 91 04/21/19 03:41 36.4 C L 88 18 124/70 93 04/21/19 00:04 90 04/20/19 23:32 36.5 C 68 18 112/78 92 Laboratory Results Laboratory Results - last 24 hr 04/20/19 04/20/19 04/20/19 13:00 13:01 13:01 WBC 6.02 RBC 3.83 L Hgb 12.4 L Hct 38.2 L MCV 99.7 MCH 32.4 MCHC 32.5 RDW Std Deviation 51.3 H RDW Coeff of Lorenzo 14.2 Plt Count 268 MPV 9.3 Immature Gran % (Auto) 0.2 Neut % (Auto) 62.1 Lymph % (Auto) 27.1 [place] % (Auto) 9.3 Eos % (Auto) 1.0 Baso % (Auto) 0.3 Immature Gran # (Auto) 0.01 Neut # (Auto) 3.74 Lymph # (Auto) 1.63 [place] # (Auto) 0.56 Eos # (Auto) 0.06 Baso # (Auto) 0.02 PT INR Sodium 140 Potassium 4.4 Chloride 109 H Carbon Dioxide 26 Anion Gap 5.0 BUN 15 Creatinine 0.95 Est Cr Clr Drug Dosing 95.1 Est GFR ( Amer) 93.6 Est GFR (Non-Af Amer) 80.8 BUN/Creatinine Ratio 15.8 Glucose 91 Estimat Average Glucose Hemoglobin A1c Calcium 9.1 Total Bilirubin 0.7 AST 15 ALT 23 Alkaline Phosphatase 111 Troponin I < 0.015 Total Protein 7.9 Albumin 3.5 Globulin 4.4 H Albumin/Globulin Ratio 0.8 L Triglycerides Cholesterol LDL Cholesterol, Calc VLDL Cholesterol, Calc HDL Cholesterol Cholesterol/HDL Ratio Lipase 144 Hepatitis C Ab Screen Neg 04/20/19 04/21/19 04/21/19 13:01 06:32 06:32 WBC RBC Hgb Hct MCV MCH MCHC RDW Std Deviation RDW Coeff of Lorenzo Plt Count MPV Immature Gran % (Auto) Neut % (Auto) Lymph % (Auto) [place] % (Auto) Eos % (Auto) Baso % (Auto) Immature Gran # (Auto) Neut # (Auto) Lymph # (Auto) [place] # (Auto) Eos # (Auto) Baso # (Auto) PT 10.9 INR 1.1 Sodium Potassium Chloride Carbon Dioxide Anion Gap BUN Creatinine Est Cr Clr Drug Dosing Est GFR ( Amer) Est GFR (Non-Af Amer) BUN/Creatinine Ratio Glucose Estimat Average Glucose 117 Hemoglobin A1c 5.7 H Calcium Total Bilirubin AST ALT Alkaline Phosphatase Troponin I Total Protein Albumin Globulin Albumin/Globulin Ratio Triglycerides 113 Cholesterol 195 LDL Cholesterol, Calc 132 VLDL Cholesterol, Calc 23 HDL Cholesterol 40 Cholesterol/HDL Ratio 5 Lipase Hepatitis C Ab Screen Diagnostic Findings Telemetry personally reviewed: Atrial flutter. ECG personally reviewed: ECG 04/20/2019: Atrial flutter with variable AV block. 134 bpm. Medications Administered Current Inpatient Medications Acetaminophen (Tylenol) 650 mg PO Q4H PRN PRN Reason: Pain or Fever Stop: 05/20/19 19:35 Al Hydrox/Mg Hydrox/Simethicone (Maalox) 15 ml PO Q4H PRN PRN Reason: Dyspepsia Stop: 05/20/19 19:35 Apixaban (Eliquis) 5 mg PO BID [facility] Stop: 05/20/19 20:59 Last Admin: 04/21/19 08:25 Dose: 5 mg Documented by: Diltiazem HCl 125 mg/ Dextrose 125 mls @ 10 mls/hr IV .[id number] [facility]; Protocol Stop: 05/20/19 12:59 Last Admin: 04/21/19 08:24 Dose: 10 mg/hr, 10 mls/hr Documented by: Magnesium Hydroxide (Milk Of Magnesia) 30 ml PO Q12H PRN PRN Reason: Constipation Stop: 05/20/19 19:35 Polyethylene Glycol (Miralax Powder Packet) 17 gm PO DAILY PRN PRN Reason: Constipation Stop: 05/20/19 19:35 PG Care Time/CCT Total # of Minutes Spent Total Time Spent with Patient: Total time spent is greater than 50% in coordination of care (as documented) at patient's floor/unit and/or counseling patient:
[2019-04-21] MEDS ORDERED: dilTIAZem HCL 120 MG CAPCR PO SCH (09:00)
--- NOTE | 2019-04-21 12:57 | Anesthesiology Progress Note ---
Date of Service April 21, 2019 Anesthesia Post Procedure Vital Signs Vital Signs: Temp Pulse Pulse Resp BP BP Pulse Ox 04/21/19 11:43 36.7 C 82 20 136/75 82 L 04/21/19 07:39 36.7 C 86 20 122/72 91 04/21/19 03:41 36.4 C L 88 18 124/70 93 04/21/19 00:04 90 04/20/19 23:32 36.5 C 68 18 112/78 92 04/20/19 19:36 91 H 04/20/19 19:28 36.6 C 101 H 18 126/82 94 04/20/19 19:00 90 17 123/92 95 04/20/19 18:50 90 21 95 04/20/19 18:45 90 19 122/91 95 04/20/19 18:40 91 H 18 94 04/20/19 18:32 91 H 19 95 04/20/19 18:31 92 H 20 139/83 95 04/20/19 18:30 102 H 23 95 04/20/19 18:28 128 H 28 H 04/20/19 18:16 103 H 21 155/100 H 04/20/19 18:10 115 H 23 04/20/19 18:01 90 20 131/92 95 04/20/19 18:00 90 22 95 04/20/19 17:50 90 20 95 04/20/19 17:46 91 H 22 131/83 95 04/20/19 17:40 90 22 94 04/20/19 17:31 86 18 94 04/20/19 17:30 90 17 138/101 H 95 04/20/19 17:20 90 16 94 04/20/19 17:15 90 18 139/98 95 04/20/19 17:10 101 H 20 95 04/20/19 17:01 90 18 94 04/20/19 17:00 90 18 133/97 95 04/20/19 16:50 109 H 17 95 04/20/19 16:45 86 18 155/108 H 96 04/20/19 16:40 84 16 94 04/20/19 16:31 96 H 17 96 04/20/19 16:30 103 H 19 140/112 H 94 04/20/19 16:20 103 H 18 96 04/20/19 16:15 103 H 21 129/95 96 04/20/19 16:10 99 H 19 96 04/20/19 16:01 96 H 20 137/82 96 04/20/19 16:00 91 H 19 96 04/20/19 15:50 102 H 22 97 04/20/19 15:45 101 H 21 141/92 H 96 04/20/19 15:40 96 H 18 96 04/20/19 15:35 102 H 21 130/94 96 04/20/19 15:31 91 H 23 158/103 H 96 04/20/19 15:30 102 H 19 96 04/20/19 15:26 101 H 19 156/119 H 96 04/20/19 15:20 102 H 19 159/108 H 96 04/20/19 15:15 97 H 20 157/122 H 96 04/20/19 15:10 96 H 19 138/116 H 96 04/20/19 15:04 94 H 18 126/98 96 04/20/19 15:01 102 H 18 96 04/20/19 15:00 92 H 17 126/98 96 04/20/19 14:55 102 H 17 137/88 96 04/20/19 14:51 102 H 17 96 04/20/19 14:50 101 H 17 134/96 95 04/20/19 14:45 100 H 19 141/87 H 96 04/20/19 14:41 99 H 18 96 04/20/19 14:40 90 19 137/87 94 04/20/19 14:35 91 H 17 132/98 96 04/20/19 14:31 102 H 19 96 04/20/19 14:30 102 H 23 124/94 95 04/20/19 14:25 109 H 30 H 121/86 04/20/19 14:21 102 H 28 H 153/96 H 94 04/20/19 14:20 120 H 20 91 04/20/19 14:15 102 H 20 128/96 95 04/20/19 14:11 86 18 95 04/20/19 14:10 102 H 96 H 27 H 124/82 126/98 96 04/20/19 14:05 102 H 17 126/98 95 04/20/19 14:01 102 H 17 95 04/20/19 14:00 96 H 18 130/87 95 04/20/19 13:55 102 H 17 115/92 95 04/20/19 13:51 102 H 18 95 04/20/19 13:50 102 H 18 118/96 94 04/20/19 13:45 102 H 22 127/99 95 04/20/19 13:41 113 H 22 95 04/20/19 13:40 112 H 24 115/81 96 04/20/19 13:30 117 H 91 H 19 160/70 H 87 L 04/20/19 13:20 136 H 26 H 96 04/20/19 13:10 132 H 18 96 04/20/19 13:00 137 H 34 H 96 Transfer of Care Handoff Completed per policy Notes Mental Status: alert / awake / arousable Patient Amnestic to Procedure: Yes Nausea / Vomiting: adequately controlled Pain: adequately controlled Airway Patency, RR, SpO2: stable & adequate BP & HR: stable & adequate Hydration State: stable & adequate Anesthetic Complications: no major complications apparent
[2019-04-21] MEDS ORDERED: LIDOCAINE HCL 2% 2 ML VIAL/AMP(20MG/ML) INFIL ONE (12:59)
[2019-04-21] MEDS ORDERED: PROPOFOL IV EMULSION 10 MG/ML 20 ML VIAL IV ONE (12:59)
--- NOTE | 2019-04-21 13:23 | Cardioversion ---
Date of Service April 21, 2019 PG Electrical Cardioversion Rp Electrical Cardioversion Report Indication: Refractory atrial flutter Procedure: After informed consent was obtained, and a timeout undertaken, the patient was sedated by Dr. Cortez. His blood pressure, pulse, oxygen saturation, and end tidal CO2 were monitored continuously. A LIANG probe was easily advanced into the esophagus through a bite block. No thrombus was identified in the left atrium or appendage. The LIANG probe was then removed. The patient was given 70 J of biphasic energy via hands off paddles and successfully converted to sinus rhythm. The patient awoke after the procedure and was conversant and without complaints. He tolerated the procedure well. There were no complications. Conclusions: 1. Successful, LIANG guided, electrical cardioversion Coding Level of Care Code Cardioversion, elective Additional Codes Electrical Cardioversion Report ([id number])
--- NOTE | 2019-04-21 15:32 | Electrocardiogram Report ---
Test Reason : Blood Pressure : / mmHG Vent. Rate : 092 BPM Atrial Rate : 092 BPM P-R Int : 214 ms QRS Dur : 088 ms QT Int : 386 ms P-R-T Axes : 058 -06 030 degrees QTc Int : 477 ms Sinus rhythm with 1st degree A-V block Inferior infarct , age undetermined Abnormal ECG When compared with ECG of 20-APR-2019 12:35, Sinus rhythm has replaced Atrial flutter Inferior infarct is now Present ST no longer elevated in Inferior leads Nonspecific T wave abnormality no longer evident in Anterolateral leads Confirmed by Krish Raymundo ([id number]) on 04/21/2019 3:31:53 PM Referred By: REFERRED SELF Confirmed By:Krish Raymundo
[2019-04-21] MEDS ORDERED: ATORVASTATIN 40 MG TAB PO SCH (18:00)
--- NOTE | 2019-04-21 18:01 | Discharge Summary ---
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 fib's a flutter. He is patient of Dr. Kong. Patient was sitting comfortably in the bed. He says that he feels okay. He had some palpitations earlier today which are now resolving. He was started on diltiazem drip and his heart rate is slowing down from [address] Kong recommended to have TTE done before LIANG guided cardioversion which is planned for tomorrow. Patient denies fever, chills, chest pain, shortness of breath, abdominal pain, frequency, urgency. EKG shows atrial flutter with variable AV block. And nonspecific T wave abnormality with QT interval of 206 and ventricul ar rate of 130. Labs are reviewed: WBCs 6.02, hemoglobin 12.4, hematocrit 38.2, platelets 268, PT 10.9, INR 1.1, sodium 140, potassium 4.4, chloride 109, BUN 15, creatinine 0.95, GFR 80.8, troponin 0.015, Albumin 3.5, TSH pending, BNP pending. Decision was made to admit patient to PCU on telemetry for planned LIANG guided cardioversion tomorrow. Admission Exam Per Admitting Provider Constitutional: WD/WN, vitals as above well developed and + morbidly obese Eyes: PERRL, conjunctivae normal, anicteric sclerae ENMT: external ear and nose normal, oropharynx normal Neck: trachea midline, no thyromegaly Respiratory: normal respiratory effort, lungs clear to auscultation Cardiovascular: Rate/Rhythm: + irregularly irregular Vessels: dorsalis pedis pulses present Gastrointestinal (Abdomen): normal bowel sounds, soft, nontender, no hepatosplenomegaly Musculoskeletal: no cyanosis or clubbing, extremities motor strength 5/5 Skin: no rashes, warm and dry Neurologic: patellar DTR's 2+ bilat, sensation intact Psychiatric: A+Ox3, euthymic affect Lymphatic: no cervical or axillary lymphadenopathy Principal Diagnosis A flutter with RVR requiring cardioversion Discharge Exam General: No acute distress HEENT: Normocephalic atraumatic Neck: No significant lymphadenopathy, trachea midline, normal to visual inspection Cardiac: Regular rate and rhythm, normal S1, normal S2, grade 2 out of 6 systolic ejection murmur I did not appreciated any significant rubs or gallops, I did not appreciate any significant pedal edema, No calf tenderness, capillary refill is less than 3 seconds Respiratory: Clear to auscultation bilaterally with symmetrical chest rise, I did not appreciate any significant wheezes, rales, rhonchi, no increased work of breathing GI: Normal bowel sounds, soft, nontender in all 4 quadrants, nondistended MSK: No sensory or motor changes, moves all extremities without issue, extremities are warm and well-perfused Skin: [place], clean, dry, intact. Neuro: Alert and oriented x4 Psych: Calm, cooperative, logical thought process Discharge Data Allergies Allergy/AdvReac Type Severity Reaction Status Date / Time No Known Allergies Allergy Verified 04/20/19 13:49 Consultations 04/20/19 13:29 ED Decision to Admit Stat 04/20/19 15:03 Consult Anesthesiology Routine 04/20/19 15:04 Consult Anesthesiology Routine 04/20/19 19:36 Consult Cardiology Routine Procedures Performed Operation Date: 04/21/19 12:00 Actual Procedures p Echo Transesophageal - Krish Raymundo MD s Cardioversion - Krish Raymundo MD Hospital Course (1) Atrial flutter: #Atrial flutter Patient with history of atrial fibrillation/atrial flutter, history of aortic stenosis now status post bioprosthetic valve placement in February 2019. Patient was seen in the cardiology office and yesterday, noted to be in atrial flutter with RVR which was originally diagnosed on 04/15/2020 cardiac rehab in [place]. He presented to the emergency department yesterday with complaints of significant dyspnea on exertion even limited exertion. He was placed on a diltiazem drip with improvement in his heart rate. Rate was controlled however he remained in atrial flutter feeling much better, shortness of breath resolved. He denied shortness of breath, chest pain, palpitations, syncope, near syncope, edema, or bleeding. He reports he was discharged from [facility] on medications however his prescriptions ran out and he did not refill them. Patient was monitored overnight on telemetry, LIANG was performed today followed by successful cardioversion. Patient was returned to his room, provided a diet which he tolerated well, patient meeting postoperative milestones and stable for discharge. -Echo 12/29/2018: Normal LV size, wall motion, systolic function. EF 55-60%. Mild LVH. Mildly dilated RV with normal systolic function severe aortic stenosis with trace regurgitation (peak velocity 4 m/s; mean gradient 40; PATRICIA 0.8 cm2). RVSP 30. -LIANG during this admission demonstrated no left atrial mass or thrombus -Cardiac catheterization 02/04/2019: Ostial LAD 50%. Proximal RCA 20%. Mid RCA 30%. -AVR with 27 mm Figueroa magna ease 03/01/[address] [place] [facility] [place]DC diltiazem -Start amiodarone 200 mg p.o. twice daily for short-term treatment of 1 to 3 months. -We will start metoprolol succinate 50 mg daily -Continue apixaban 5 mg p.o. daily -Follow-up with cardiology in 1 to 2 weeks #CAD/hyperlipidemia Most recent lipid panel in October 2018 was grossly normal. Repeat this morning after a 12-hour fast demonstrated an LDL of 132. -Start atorvastatin 40 mg FENa: Heart healthy diet Code Status: Full code DVT PPX: Apixaban PT/OT: Not indicated Dispo: Home Robin Garcia MD PGY 2, FCM This chart was completed utilizing [employer] voice recognition software. Grammatical errors, random word insertions, pronoun errors, and in complete sentences are an occasional consequence of the system. Any questions or concerns about the content, text, or information contained within the body of this dictation should be addressed directly to the physician for clarification. (2) SOB (shortness of breath): (3) Weakness: (4) S/P aortic valve replacement with bioprosthetic valve: (5) Aortic stenosis: Total Time Total Time Spent Total Time Spent (In Minutes): <30 Discharge Plan Discharge Items Patient Disposition: Home - Self-Care Reason For Visit: PAROXISMAL AFIBS/AFLUTTER Discharge Diagnosis: Symptomatic atrial flutter with rapid ventricular response Activity: As commented below Activity Comment: Per cardiac rehab Non-emergency contact: Primary Care Provider Call non-emergency contact if: you have any medication questions, your symptoms worsen, your pain is unusual for you and your temperature is above 101 Follow-up/Referrals: Emil Jo MD [Primary Care Provider] - Diet: Heart Healthy Addtl Attending Provider Instructions: Care instructions: You were admitted to [facility] for treatment of atrial flutter with rapid ventricular response. You were admitted to the hospital for management of the above. While hospitalized you were initially given diltiazem to achieve adequate rate control. Your heart rate was controlled and you were made n.p.o. overnight in preparation for transesophageal echocardiography and subsequent cardioversion. The cardioversion was successful and he returned to normal sinus rhythm, you tolerated the procedure well, and was subsequently discharged. Some changes were made to your medication regimen upon discharge these are detailed below. -You are to stop taking diltiazem -You are to start taking metoprolol 50 mg every day -You are to start taking atorvastatin 40 mg every day -You are to start taking amiodarone 200 mg 2 times a day once in the morning and once in the evening These medications have been called into the [place] pharmacy Cardiology has arranged for you to follow-up with them in 2 to 4 weeks. If you do not hear from their office please contact them within 1 week of discharge. A discharge summary will be sent to your primary care physician to ensure continuity of care. Please bring this discharge summary with you to your next office appointment so that your provider can review it at that time. Follow-up appointments: - Keep all your follow-up appointments as already scheduled. If you cannot make an appointment, notify your provider. - Please call to request a follow-up appointment with your primary care physician within one week of discharge. Please let us know if you are unable to obtain an appointment Medications: - Your medication list has been reviewed and reconciled upon discharge to ensure accuracy and continuity of care. - You are provided with a list of all your current medications at this time. Please review this list closely and make note of any changes. - Please take all of your medications exactly as prescribed. - Tell your primary care provider if you cannot afford your medications. - Call your primary care provider if you are having any side effects or any other problems. - Call your primary care provider before taking any over the counter medications or supplements, including herbals and vitamins, because some of these may interact with your current medications and/or make your symptoms worse. Symptoms: Please call your primary care provider for symptoms including, but not limited to: fevers (temperatures greater than 100.4), chills, intractable nausea or vo miting, diarrhea, rash, shortness of breath, bleeding, pain, or if you experience any worsening of the symptoms that brought you to the hospital. For EMERGENCY and VERY SERIOUS health-related issues, such as chest pain, shortness of breath, or sudden onset of the symptoms that brought you to the hospital, you may need to call 911 or go directly to the Emergency Room It has been our privilege to take care of you during your hospital stay. And Above All Else Feel Better! Best Wishes, Robin Garcia MD PGY2 Resident, Family & Community Medicine [facility] at [address], [address] : [place] [address] Pending Studies at Discharge: No Stand-Alone Forms: My [facility], Smoking Cessation Medications and DC Order Prescriptions: New atorvastatin 40 mg Tablet 40 mg PO QAM 30 Days Qty: 30 RF: 0 amiodarone 200 mg Tablet 200 mg PO BIDM 30 Days Qty: 60 RF: 0 metoprolol succinate 50 mg Tablet Extended Release 24 Hr 50 mg PO QAM 30 Days Qty: 30 RF: 0 Continued Eliquis 5 mg tablet 5 mg PO BID RF: 0 Discontinued diltiazem HCl 120 mg capsule,extended release 24hr 120 mg PO DAILY RF: 0 Discharge Orders: Discharge Order (Routine); Ordered 04/21/19 Ordered By: Robin Garcia Admission Data Admit Date/Time: 04/20/19 15:17 Attending Provider: John Patricia Admit Provider: Kemar López Primary Care Provider: Emil Jo Other Providers: Ladonna Donnelly ; Danny Donohue ; Michelle oDnohue ; Wyatt Ortez ; Natali Pruett ; Bj August ; Jeanna Thapa ; Nilo Thapa V ; Ludy Londono ; Antolin Rodriguez ; Myranda Cruz ; Ladonna Burnette ; Idris Romero ; Jimy Mathew ; Bev Aguilar ; Mariano Aguilar ; Hetal Cruz ; Finn Peck ; Hali Tapia ; Sweta Alonso ; Elizabeth Bolton. ; Emili Brown ; Santiago Cortez ; Jalen Hammer ; Carmen Montgomery ; Katarina Warren ; Helga Fang ; Kwame Leon ; Dexter Kumar ; Lorenzo Harrell ; Kip Harrell ; Rodrigo Mcgrath ; Dexter Solano ; Jyotsna Celis ; Dimitri Herzog ; Vel Waller ; Nilo Boss ; Javier Mcneil ; Anh Lim ; Fabiola Bonilla ; Ludy Calhoun ; Sybil Klein ; Bong Klein ; Jimy García ; Jade Bullock ; Tye Mcneil ; Radha Weston ; Galina Cortez ; Jade Helton ; Luz Elena Rice ; Shawn Zuniga ; Sylvie Joseph ; Kemar López ; Van Kong. Supervising Physician Co-Signing Physician Notes I personally examined the patient and verified all lux points of history and exam, discussed case, and agree with decision making with Dr Garcia. Patient feeling good post cardioversionmaking jokes. Patient asks whether or not he should resume lisinoprilbut notes that he has been off of it since prior to his aortic valve replacement. Vitals noted, in general he is awake and alert pleasant no distress. HEENT normocephalic atraumatic mucous membranes moist. Breathing unlabored no accessory muscle use good effort. Skin shows no rashes no pallor or icterus. A. fib/flutterwas refractory; now improved status post cardioversion. Stable for home. Close outpatient follow-up. Otherwise as above. Hypertensiondiscussed home blood pressure monitoring and then close PCP follow- up. He expresses understanding. Resident Activity Tracking Resident Involvement: Resident Care Provided Care Provided: Adult Hospital Medicine
--- NOTE | 2019-04-21 18:07 | Billing Data ---
Date of Service April 21, 2019 Coding Level of Care Code D/C Day Management <30 mins
[2019-04-22] MEDS ORDERED: AMIODARONE 200 MG TAB PO SCH (08:00)
[2019-04-22] MEDS ORDERED: METOPROLOL SUCC 50MG EXT REL TAB PO SCH (09:00)
== END 2019-04-21 18:40 | disposition home or self-care (01) | DRG 310 ==
LOC: ED 12:19 → SUATTDRO 15:17 → 2S 15:17